=== PATIENT | male | born 1950 | race Caucasian/White ===

== ENCOUNTER 2017-05-15 13:27 | Emergency (ER) | payer OTHER ==
[2017-05-15 13:47] VITALS: RESP 16
--- NOTE | 2017-05-15 13:47 | EDPHY ---
H & P Source: Patient Exam Limitations: No limitations - Family History Significant Family History: No pertinent family hx Time Seen by Provider: 05/15/17 13:52 HPI/ROS: CHIEF COMPLAINT: Right ankle pain and deformity HISTORY OF PRESENT ILLNESS: The patient presents to the ED via EMS with right ankle pain and deformity. The patient reportedly fell off a ladder earlier today. He did not strike his head or lose consciousness. He has obvious lateral deformity of his foot relative to his tib-fib area. The patient has a history of prior orthopedic injuries. He is not anticoagulated. He denies any associated headache, neck pain, chest pain or difficulty breathing. The patient has moderate to severe pain and swelling in his right ankle. REVIEW OF SYSTEMS: A comprehensive 10 point review of systems is otherwise negative aside from elements mentioned in the history of present illness. (Brendan Vicente) - Physical Exam Exam: General Appearance: Alert, no distress Head: Atraumatic Eyes: Pupils equal, round, reactive ENT, Mouth: No hemotympanum, no oral trauma Neck: Nontender, trachea midline Respiratory: No chest wall tender, subcutaneous air, lungs clear bilaterally Cardiovascular: Regular rate and rhythm Abdomen: Abdomen is soft and nontender, pelvis stable Skin: No lacerations, No abrasion Back: No midline T/L/S pain Extremities: Deformity, soft tissue swelling and lateral angulation of the foot relative to the tibia Neurological: A&Ox3, normal motor function, normal sensory exam (Brendan Vicente) Constitutional: Initial Vital Signs Temperature (C) 36.3 C 05/15/17 13:42 Heart Rate 55 L 05/15/17 13:42 Respiratory Rate 16 05/15/17 13:42 Blood Pressure 170/84 H 05/15/17 13:42 O2 Sat (%) 95 05/15/17 13:42 O2 Delivery Mode Room Air Allergies/Adverse Reactions: Unable to Assess Allergy (Unverified 05/15/17 13:42) Home Medications: Medication Instructions Recorded Lamictal 05/15/17 Wellbutrin 100mg (*) 05/15/17 Medical Decision Making - Diagnostics Imaging Results: Imaging Impressions Ankle X-Ray 05/15/17 13:42 Impression: 1. Fracture subluxation right ankle. 2. Calcaneal fractures are suspect. Recommend CT. Extremity CT 05/15/17 14:05 Impression: 1. Fracture of the medial malleolus and posterior lateral corner of the tibial plafond with these fracture fragments tracking with the hindfoot and fibula laterally by about 5 mm with the distal tibial plafond subluxed medially at the ankle mortise. 2. No additional fractures about the ankle. Procedures: Procedure: Trimalleolar fracture dislocation reduction Indication: Trimalleolar fracture dislocation The right close trimalleolar fracture dislocation was reduced in the usual fashion without complications. Post reduction the patient's neurovascular exam is normal. Post reduction x-ray demonstrates reduction of the joint to the anatomic position. The procedure was performed by myself. Procedure: Splint placement. A ortho glass three-way posterior splint was applied to the body location by the tech. After application of the splint I returned and re-examined the patient. The splint was adequately immobilizing the joint and distal to the splint the patient's circulation and sensation was intact. (Brendan Vicente) ED Course/Re-evaluation: The patient presents to the ED with an obvious fracture dislocation of the left ankle. With gentle traction I reduced the obvious displacement of the fracture prior to ordering x-rays. The patient was placed in a posterior three-way ortho glass splint. The patient's x-rays demonstrated the possibility of a calcaneal fracture. This was followed up with a CT scan of the ankle joint. Consultation was made with Dr. Adria Wesley's physician offset assistant press operator at 3:00 p.m.. The patient ate breakfast at 10:00 a.m.. 3:20 p.m.: Still awaiting callback from Orthopedic surgery about timing of surgery. The patient will be turned over to Dr. Huang at shift change. ( Brendan Vicente) Dr. Wesley came to the emergency department to evaluate the patient. He discussed treatment options. He offered the patient admission and surgery. The patient want to contact his [employer] insurance prior to consenting to admission. 1625: I discussed the case with the patient. They wished to be discharged from the emergency department. They have spoken with their insurance company and stated they will not be covered at [facility]. I explained this to the patient. I answered all his questions. His IV was removed. He was discharged from the emergency department and will follow up with [facility]. I informed Dr. Wesley of the patient's plan. (Dorothea Huang) Differential Diagnosis: Differential diagnosis considered includes open fracture, closed fracture, neurovascular injury, calcaneal fracture (Brendan Vicente) - Data Points Laboratory Results: Laboratory Results 05/15/17 13:32 05/15/17 13:32 05/15/17 05/15/17 05/15/17 13:32 13:32 13:32 WBC 5.98 10^3/uL 10^3/uL (3.80-9.50) RBC 4.74 10^6/uL 10^6/uL (4.40-6.38) Hgb 15.8 g/dL g/dL (13.7-17.5) Hct 45.1 % % (40.0-51.0) MCV 95.1 fL fL (81.5-99.8) MCH 33.3 pg pg (27.9-34.1) MCHC 35.0 g/dL g/dL (32.4-36.7) RDW 13.4 % % (11.5-15.2) Plt Count 231 10^3/uL 10^3/uL (150-400) MPV 11.4 fL fL (8.7-11.7) Neut % (Auto) 55.6 % % (39.3-74.2) Lymph % (Auto) 28.9 % % (15.0-45.0) [place] % (Auto) 11.7 % % (4.5-13.0) Eos % (Auto) 3.0 % % (0.6-7.6) Baso % (Auto) 0.8 % % (0.3-1.7) Nucleat RBC Rel Count 0.0 % % (0.0-0.2) Absolute Neuts (auto) 3.32 10^3/uL 10^3/uL (1.70-6.50) Absolute Lymphs (auto) 1.73 10^3/uL 10^3/uL (1.00-3.00) Absolute Monos (auto) 0.70 10^3/uL 10^3/uL (0.30-0.80) Absolute Eos (auto) 0.18 10^3/uL 10^3/uL (0.03-0.40) Absolute Basos (auto) 0.05 10^3/uL 10^3/uL (0.02-0.10) Absolute Nucleated RBC 0.00 10^3/uL 10^3/uL (0-0.01) Immature Gran % 0.0 % % (0.0-1.1) Immature Gran # 0.00 10^3/uL 10^3/uL (0.00-0.10) PT 13.6 SEC SEC (12.0-15.0) INR 1.02 (0.83-1.16) APTT 26.0 SEC SEC (23.0-38.0) Sodium 140 mEq/L mEq/L (135-145) Potassium 4.7 mEq/L mEq/L (3.5-5.2) Chloride 105 mEq/L mEq/L (97-110) Carbon Dioxide 24 mEq/l mEq/l (22-31) Anion Gap 11 mEq/L mEq/L (8-16) BUN 22 mg/dL mg/dL (7-23) Creatinine 1.1 mg/dL mg/dL (0.7-1.3) Estimated GFR > 60 Glucose 87 mg/dL mg/dL (70-100) Calcium 9.4 mg/dL mg/dL (8.5-10.4) Medications Given: Discontinued Medications Hydromorphone HCl (Dilaudid) 1 mg IVP EDNOW ONE Stop: 05/15/17 13:56 Last Admin: 05/15/17 13:59 Dose: 1 mg Ondansetron HCl (Zofran) 4 mg IVP EDNOW ONE Stop: 05/15/17 13:56 Last Admin: 05/15/17 13:57 Dose: 4 mg Departure - Departure Disposition: Home, Routine, Self-Care Clinical Impression: Trimalleolar fracture of ankle, closed Qualifiers: Encounter type: initial encounter Laterality: right Qualified Code(s): S82.851A - Displaced trimalleolar fracture of right lower leg, initial encounter for closed fracture Condition: Good Instructions: Ankle Fracture (ED) Additional Instructions: Keep your splint in place. You need close follow-up with [facility]. Referrals: [facility] ([facility],. [Edm Groups for Call Sched] - 2-3 days, call for appt.
[2017-05-15 13:51] LABS: PLATELET COUNT 231 10^3/uL (150-400)
[2017-05-15] MEDS ORDERED: HYDROmorphONE/DILAUDID 1 MG/ML INJ ONE (13:53)
[2017-05-15] MEDS ORDERED: ONDANSETRON 4 MG/2 ML VIAL ONE (13:53)
[2017-05-15] MEDS ORDERED: ONDANSETRON 4 MG/2 ML VIAL IVP ONE (13:55)
[2017-05-15] MEDS ORDERED: HYDROmorphONE/DILAUDID 1 MG/ML INJ IVP ONE (13:55)
[2017-05-15 13:58] LABS: INR 1.02 (0.83-1.16); PROTIME(PATIENT) 13.6 SEC (12.0-15.0)
[2017-05-15 16:25] VITALS: BP 155/80; PULSE 60; TEMP 98.6; O2SAT 97
== END 2017-05-15 16:44 | disposition home or self-care (01) ==
LOC: EDUNIT#
PROC: 0QSGXZZ Reposition Right Tibia, External Approach (ICD-10-PCS; principal; 2017-05-15)
DX: S82.851A Displaced trimalleolar fracture of right lower leg, initial encounter for closed fracture (principal); W11.XXXA Fall on and from ladder, initial encounter
CPT/HCPCS: 27818; 73610; 73700; 96374; 96375; 99285; J1170; J2405